=== PATIENT | female | born 1950 | race Caucasian/White ===

== ENCOUNTER 2017-01-10 10:02 | Observation (INO) | payer OTHER ==
[~2017-01-10] VITALS: Ht 162.6 cm; Wt 109.0 kg
[~2017-01-10 10:02] MED LIST: ASPI-110 PO; BACT800T5 PO; CANA300T PO; CIPR-9 PO; FLUO10TA PO; LISI40TA PO; MAGN250T2 PO; METF-382 PO; METO50TA PO; METR-1 PO; MULT1TAB96 PO; NOVOLOGP2 SQ; OMEP20TA PO; PIOG30TA4 PO; POTA99TA PO; PRAV20TA2 PO; PROM25TA5 PO; ZOFR4TAB3 SL
[2017-01-10 10:03] VITALS: BP 212/95; PULSE 66; RESP 20; TEMP 98.2; O2SAT 97
[2017-01-10] MEDS ORDERED: PRAV40TA2 PO (10:33)
[2017-01-10] MEDS ORDERED: NOVO7030P2 SQ (10:33)
[2017-01-10] MEDS ORDERED: OMEGCAP PO (10:33)
[2017-01-10] MEDS ORDERED: FIBE500T PO (10:33)
[2017-01-10] MEDS ORDERED: GLUC1TAB16 PO (10:33)
[2017-01-10] MEDS ORDERED: COQ-100C2 PO (10:33)
[2017-01-10] MEDS ORDERED: ASPIRIN 81 MG CHEW TAB PO ONE (10:45)
[2017-01-10] MEDS ORDERED: SODIUM CHLORIDE 0.9% FLUSH 10 ML FLUSH IVF PRN (10:45)
[2017-01-10] MEDS ORDERED: SODIUM CHLORID 0.9% 500 ML INJ 500 ML IV ONE (10:45)
[2017-01-10 11:10] VITALS: RESP 20; O2SAT 97
--- NOTE | 2017-01-10 11:17 | PD ---
HPI Chief Complaint: Cardiac Complaint Time Seen by Provider: 10:29 Travel History International Travel<30 days: No Contact w/Intl Traveler<30days: No Traveled to known affect area: No History of Present Illness HPI Patient is a 66-year-old female who presents to emergency room with history of hypertension, diabetes with multiple complaints. Patient reports that since yesterday 6 PM, she has been having chest pain. Patient reports that her chest pain is located to her left breast, reports that it radiates to her jaw. Patient reports chest pain as sharp and stabbing in nature, reports that she has associated shortness of breath with her symptoms. Patient reports that chest pain is exacerbated with taking deep breaths. Reports that pain has been continuous since last night. Reports that nothing really makes her pain better. Patient also reports that she has noticed that her legs have been swollen. She has noticed increased swelling in legs which is worse at nighttime for the past week. Patient reports history of DVT in the past, reports that she currently is not on anticoagulation. Patient reports that the last time she was diagnosed with a DVT was about 40 years ago when she had her daughter. Reports that DVT was related [facility] Past Medical History Heart Rhythm Problems: No Cardiac Catheterization: No Cardiovascular Problems: Yes (HTN) High Cholesterol: No Congestive Heart Failure: No Diabetes: Yes (TYPE II, METFORMIN 01/10 0800) Patient Takes Glucophage: Yes Diminished Hearing: Yes (BILATERAL) Gastrointestinal Disorders: Yes GERD: Yes Genitourinary: Yes Hepatitis: Yes (HEP-A) Hypertension: Yes Kidney Stones: Yes Musculoskeletal: No Neurologic: No Reproductive: No Respiratory: Yes (HISTOPLASMOSIS IN 20'S) Myocardial Infarction: No Pancreatitis: Yes Sleep Apnea: Yes ?: Not : 4 Para: 3 Miscarriage: 1 Dilation and Curettage (D&C): Yes Tubal Ligation: Yes Past Surgical History Abdominal Surgery: No Appendectomy: Yes Cardiac Surgery: Yes (CARDIAC CATH) Cholecystectomy: Yes Coronary Artery Bypass Graft: No Ear Surgery: No Endocrine Surgery: Yes (GALL BLADDER) Eye Surgery: No Genitourinary Surgery: No Gynecologic Surgery: Yes (TUBAL LIGATION, D&C ) Oral Surgery: No Pacemaker: No Thoracic Surgery: No Tonsillectomy: Yes Other Surgery: Yes (UPPP) Social History Alcohol Use: No Tobacco Use: No Substance Use: No Allergies-Medications (Allergen,Severity, Reaction): Coded Allergies: Aspartame (Verified Allergy, Severe, ANAPHYLAXIS, 01/10/17) Codeine (Verified Allergy, Severe, HIVES, RASH, 01/10/17) (Verified Allergy, Severe, HIVES, RASH, 01/10/17) Micardis (Verified Allergy, Severe, RASH, SWELLING AND PAIN TO EXTREMITIES , 01/10/17) Robitussin (Verified Allergy, Severe, HIVES, 01/10/17) Tramadol (Verified Allergy, Severe, 01/10/17) Reported Meds & Prescriptions Reported Meds & Active Scripts Active Reported Glucosamine Sulfate 1,000 Mg Tab 1,000 Mg PO DAILY Coq-10 (Coenzyme Q10 (Ubidecarenone)) 100 Mg Cap 100 Mg PO DAILY Zap-3 Fish Oil/Vitamin (Fish Oil-Cholecalciferol) 1,000-1,000 Mg Cap 1 Cap PO DAILY Fiber Therapy (Methylcellulose) 500 Mg Tab 1 Tab PO DAILY PRN Novolin 70-30 Inj (Insulin Human Isoph/Insulin Regular) 1,000 Unit/10 Ml Vial 1 Units SQ Pravastatin 40 Mg Tab 40 Mg PO DAILY Aspirin 81 (Aspirin) 81 Mg Tabdr 81 Mg PO DAILY Multivitamin Women 50+ (Multiple Vitamins W/ Minerals) 1 Tab Tab 1 Tab PO DAILY Magnesium 250 Mg Tab 250 Mg PO DAILY Potassium 99 Mg Tab 1 Tab PO DAILY Omeprazole 20 Mg Tab 20 Mg PO DAILY Pioglitazone (Pioglitazone HCl) 30 Mg Tab 30 Mg PO DAILY Metformin ER (Metformin HCl) 1,000 Mg Jose 1,000 Mg PO BID With evening meal Lisinopril 40 Mg Tab 40 Mg PO DAILY Metoprolol Tartrate 50 Mg Tab 50 Mg PO BID Review of Systems General / Constitutional: No: Fever Eyes: No: Visual changes HENT: No: Headaches Cardiovascular: Positive: Chest Pain or Discomfort Respiratory: Positive: Shortness of Breath, No: Cough Gastrointestinal: No: Abdominal Pain Genitourinary: No: Dysuria Musculoskeletal: Positive: Edema, No: Pain Skin: No Rash Neurologic: No: Weakness Psychiatric: No: Depression Endocrine: No: Polydipsia Hematologic/Lymphatic: No: Easy Bruising Physical Exam Narrative GENERAL: nad, nontoxic SKIN: Focused skin assessment warm/dry. HEAD: Atraumatic. Normocephalic. EYES: Pupils equal and round. No scleral icterus. No injection or drainage. ENT: No nasal bleeding or discharge. Mucous membranes pink and moist. NECK: Trachea midline. No JVD. CARDIOVASCULAR: Regular rate and rhythm. No murmur appreciated. RESPIRATORY: No accessory muscle use. Clear to auscultation. Breath sounds equal bilaterally. GASTROINTESTINAL: Abdomen soft, non-tender, nondistended. Hepatic and splenic margins not palpable. MUSCULOSKELETAL: No obvious deformities. No clubbing. No cyanosis. +1 edema to LE NEUROLOGICAL: Awake and alert. No obvious cranial nerve deficits. Motor grossly within normal limits. Normal speech. PSYCHIATRIC: Appropriate mood and affect; insight and judgment normal. Data Data Last Documented VS Vital Signs Date Time Temp Pulse Resp B/P Pulse Ox O2 Delivery O2 Flow Rate FiO2 01/10/17 12:21 17 01/10/17 11:10 97 Room Air 01/10/17 10:03 98.2 66 212/95 Orders Electrocardiogram (01/10/17 ) B-Type Natriuretic Peptide (01/10/17 10:35) Ckmb (Isoenzyme) Profile (01/10/17 10:35) Complete Blood Count With Diff (01/10/17 10:35) Comprehensive Metabolic Panel (01/10/17 10:35) D-Dimer (01/10/17 10:35) Magnesium (Mg) (01/10/17 10:35) Prothrombin Time / Inr (Pt) (01/10/17 10:35) Act Partial Throm Time (Ptt) (01/10/17 10:35) Troponin I (01/10/17 10:35) Chest, Single Ap (01/10/17 10:35) Ecg Monitoring (01/10/17 10:35) Iv Access Insert/Monitor (01/10/17 10:35) Oximetry (01/10/17 10:35) Aspirin Chew (Aspirin Chew) (01/10/17 10:45) Sodium Chloride 0.9% Flush (Ns Flush) (01/10/17 10:45) Sodium Chlorid 0.9% 500 Ml Inj (Ns 500 M (01/10/17 10:45) Us Leg Venous Doppler Bilat (01/10/17 ) Nitroglycerin Sl (Nitrostat Sl) (01/10/17 11:30) Ct Pulmonary Angiogram (01/10/17 13:09) Iohexol 350 Inj (Omnipaque 350 Inj) (01/10/17 14:24) Admit Order (Ed Use Only) (01/10/17 14:57) Labs Laboratory Tests Test 01/10/17 12:10 White Blood Count 5.8 TH/MM3 Red Blood Count 4.26 MIL/MM3 Hemoglobin 12.3 GM/DL Hematocrit 36.3 % Mean Corpuscular Volume 85.3 FL Mean Corpuscular Hemoglobin 28.8 PG Mean Corpuscular Hemoglobin 33.8 % Concent Red Cell Distribution Width 13.3 % Platelet Count 202 TH/MM3 Mean Platelet Volume 9.2 FL Neutrophils (%) (Auto) 54.3 % Lymphocytes (%) (Auto) 33.6 % Monocytes (%) (Auto) 7.7 % Eosinophils (%) (Auto) 3.7 % Basophils (%) (Auto) 0.7 % Neutrophils # (Auto) 3.1 TH/MM3 Lymphocytes # (Auto) 1.9 TH/MM3 Monocytes # (Auto) 0.4 TH/MM3 Eosinophils # (Auto) 0.2 TH/MM3 Basophils # (Auto) 0.0 TH/MM3 CBC Comment DIFF FINAL Differential Comment Prothrombin Time 10.7 SEC Prothromb Time International 1.0 RATIO Ratio Activated Partial 28.2 SEC Thromboplast Time D-Dimer Quantitative (PE/DVT) 3.79 MG/L FEU Sodium Level 141 MEQ/L Potassium Level 4.5 MEQ/L Chloride Level 107 MEQ/L Carbon Dioxide Level 24.2 MEQ/L Anion Gap 10 MEQ/L Blood Urea Nitrogen 14 MG/DL Creatinine 1.01 MG/DL Estimat Glomerular Filtration 55 ML/MIN Rate Random Glucose 158 MG/DL Calcium Level 9.0 MG/DL Magnesium Level 1.6 MG/DL Total Bilirubin 0.3 MG/DL Aspartate Amino Transf 25 U/L (AST/SGOT) Alanine Aminotransferase 35 U/L (ALT/SGPT) Alkaline Phosphatase 132 U/L Total Creatine Kinase 85 U/L Troponin I LESS THAN 0.02 NG/ML B-Type Natriuretic Peptide 62 PG/ML Total Protein 7.5 GM/DL Albumin 3.7 GM/DL MDM Medical Decision Making Medical Screen Exam Complete: Yes Emergency Medical Condition: Yes Interpretation(s) EKG at 1025: NSR at 60bpm, qt/qtc: 376/377, no acute st or t wave changes Vital Signs Date Time Temp Pulse Resp B/P Pulse Ox O2 Delivery O2 Flow Rate FiO2 01/10/17 10:03 98.2 66 20 212/95 97 Room Air Differential Diagnosis ACS, PE, DVT, pneumothorax, arrhythmia, electrolyte abnormality Narrative Course Patient is a 66-year-old female who presents to emergency room with complaints of not feeling well. Patient reports that she has been having chest pain since 6 PM last night. Reports that pain is left sided and radiates to her neck. Reports history of htn and DM and hyperlipidemia. No history of ACS, MT. EKG on initial presentation showed normal sinus rhythm with no acute ST or T-wave changes. Plan to obtain x-ray chest, lab work including cardiac enzymes. We'll give so we'll nitroglycerin receive a helps for chest pain. Patient also complaining of lower extremity swelling. Patient does have history of DVT in the past, ultrasound of legs ordered. Patient with relief of chest pain after 1 sublingual nitroglycerin. Patient d-dimer elevated, patient agreeable to CTA to rule out PE Laboratory Tests Test 01/10/17 12:10 White Blood Count 5.8 TH/MM3 (4.0-11.0) Red Blood Count 4.26 MIL/MM3 (4.00-5.30) Hemoglobin 12.3 GM/DL (11.6-15.3) Hematocrit 36.3 % (35.0-46.0) Mean Corpuscular Volume 85.3 FL (80.0-100.0) Mean Corpuscular Hemoglobin 28.8 PG (27.0-34.0) Mean Corpuscular Hemoglobin 33.8 % Concent (32.0-36.0) Red Cell Distribution Width 13.3 % (11.6-17.2) Platelet Count 202 TH/MM3 (150-450) Mean Platelet Volume 9.2 FL (7.0-11.0) Neutrophils (%) (Auto) 54.3 % (16.0-70.0) Lymphocytes (%) (Auto) 33.6 % (9.0-44.0) Monocytes (%) (Auto) 7.7 % (0.0-8.0) Eosinophils (%) (Auto) 3.7 % (0.0-4.0) Basophils (%) (Auto) 0.7 % (0.0-2.0) Neutrophils # (Auto) 3.1 TH/MM3 (1.8-7.7) Lymphocytes # (Auto) 1.9 TH/MM3 (1.0-4.8) Monocytes # (Auto) 0.4 TH/MM3 (0-0.9) Eosinophils # (Auto) 0.2 TH/MM3 (0-0.4) Basophils # (Auto) 0.0 TH/MM3 (0-0.2) CBC Comment DIFF FINAL Differential Comment Prothrombin Time 10.7 SEC (9.8-11.6) Prothromb Time International 1.0 RATIO Ratio Activated Partial 28.2 SEC Thromboplast Time (24.3-30.1) D-Dimer Quantitative (PE/DVT) 3.79 MG/L FEU (0.00-0.50) Sodium Level 141 MEQ/L (136-145) Potassium Level 4.5 MEQ/L (3.5-5.1) Chloride Level 107 MEQ/L (98-107) Carbon Dioxide Level 24.2 MEQ/L (21.0-32.0) Anion Gap 10 MEQ/L (5-15) Blood Urea Nitrogen 14 MG/DL (7-18) Creatinine 1.01 MG/DL (0.50-1.00) Estimat Glomerular Filtration 55 ML/MIN (>89) Rate Random Glucose 158 MG/DL (74-106) Calcium Level 9.0 MG/DL (8.5-10.1) Magnesium Level 1.6 MG/DL (1.5-2.5) Aspartate Amino Transf 25 U/L (15-37) (AST/SGOT) Albumin 3.7 GM/DL (3.4-5.0) Last Impressions Chest X-Ray 01/10/17 1035 Signed Impressions: Service Date/Time: Tuesday, January 10, 2017 11:02 - CONCLUSION: No acute disease. Carmelo Winters MD Lower Extremity Ultrasound 01/10/17 0000 Signed Impressions: Service Date/Time: Tuesday, January 10, 2017 11:05 - CONCLUSION: No DVT. Carmelo Winters MD Last Impressions CT Angiography 01/10/17 1309 Signed Impressions: Service Date/Time: Tuesday, January 10, 2017 14:20 - CONCLUSION: No pulmonary embolus. Carmelo Winters MD Chest X-Ray 01/10/17 1035 Signed Impressions: Service Date/Time: Tuesday, January 10, 2017 11:02 - CONCLUSION: No acute disease. Carmelo Winters MD Lower Extremity Ultrasound 01/10/17 0000 Signed Impressions: Service Date/Time: Tuesday, January 10, 2017 11:05 - CONCLUSION: No DVT. Carmelo Winters MD Repeat ekg at 1454: NSR at 62bpm, qt/qtc: 383/389, no st or t wave changes I reviewed all labs and all studies with patient in detail, plan to observation for chest pain, patient agreeable to primary care Diagnosis Primary Impression: Chest pain Qualified Code: R07.9 - Chest pain, unspecified type Admitting Information Admitting Physician Requests: Observation Katharine Ying DO Jan 10, 2017 11:17
[2017-01-10] MEDS: NITROGLYCERIN 0.4 MG SL 25 TABS/BTL SL SCH ×3 (11:35→12:16)
--- NOTE | 2017-01-10 11:40 | RADRPT ---
EXAM DATE/TIME: 01/10/2017 11:02 [facility] COMPARISON: CHEST SINGLE AP, December 30, 2013, 21:44. INDICATIONS : Left sided chest pain MEDICAL HISTORY : Hypertension. Gastroesophageal reflux disease. Diabetes. SURGICAL HISTORY : Appendectomy. Cholecystectomy.Tubal ligation. ENCOUNTER: Initial ACUITY: 1 day PAIN SCORE: 7/10 LOCATION: Left chest FINDINGS: A single view of the chest demonstrates the lungs to be symmetrically aerated without evidence of mas s, infiltrate or effusion. The cardiomediastinal contours are unremarkable. Osseous structures are intact. CONCLUSION: No acute disease. Carmelo Winters MD on January 10, 2017 at 11:38 Board Certified Radiologist. This report was verified electronically.
--- NOTE | 2017-01-10 12:09 | RADRPT ---
EXAM DATE/TIME: 01/10/2017 11:05 [facility] COMPARISON: No previous studies available for comparison. INDICATIONS : Bilateral leg swelling. MEDICAL HISTORY : Gastroesophageal reflux disease. Hypertension. Hyperlipidemia. Kidney stones. History of MRSA. SURGICAL HISTORY : Tonsillectomy.Cholecystectomy. Tubal ligation.Adenoidectomy. Two knee surgeries. ENCOUNTER: Initial ACUITY: 2 day PAIN SCORE: 5/10 LOCATION: Bilateral legs. TECHNIQUE: Venous ultrasound of the left and right leg was performed from the inguinal ligament to the proximal calf. Real-time, color Doppler and spectral tracing, compression and augmentation techniques were us ed. FINDINGS: RIGHT LEG: There is normal compressibility of the deep venous system from the inguinal region to the proximal ca lf. No echogenic clot is seen in the lumen of the common femoral, femoral, popliteal, and posterior tibial veins. There is a normal response of the venous system to proximal and distal augmentation an d respiration. LEFT LEG: There is normal compressibility of the deep venous system from the inguinal region to the proximal ca lf. No echogenic clot is seen in the lumen of the common femoral, femoral, popliteal, and posterior tibial veins. There is a normal response of the venous system to proximal and distal augmentation an d respiration. CONCLUSION: No DVT. Carmelo Winters MD on January 10, 2017 at 12:07 Board Certified Radiologist. This report was verified electronically.
[2017-01-10 12:50] LABS: AUTOMATED NEUTROPHIL # 3.1 TH/MM3 (1.8-7.7); BASOPHIL % 0.7 % (0.0-2.0); EOSINOPHIL # 0.2 TH/MM3 (0-0.4); EOSINOPHIL % 3.7 % (0.0-4.0); HEMATOCRIT 36.3 % (35.0-46.0); HEMO FLAGS DIFF FINAL; LYMPH % 33.6 % (9.0-44.0); LYMPHOCYTE # 1.9 TH/MM3 (1.0-4.8); MEAN CELL VOLUME 85.3 FL (80.0-100.0); MEAN CORPUSCULAR HEMOGLOBIN 28.8 PG (27.0-34.0); MEAN CORPUSCULAR HGB CONC 33.8 % (32.0-36.0); MONO % 7.7 % (0.0-8.0); NEUT % 54.3 % (16.0-70.0); PLATELET COUNT 202 TH/MM3 (150-450); RED BLOOD COUNT 4.26 MIL/MM3 (4.00-5.30); RED CELL DISTRIBUTION WIDTH 13.3 % (11.6-17.2); WHITE BLOOD COUNT 5.8 TH/MM3 (4.0-11.0)
[2017-01-10 13:00] LABS: APTT (PATIENT) 28.2 SEC (24.3-30.1); PROTHROMBIN TIME - PATIENT 10.7 SEC (9.8-11.6)
[2017-01-10 13:07] LABS: ANION GAP 10 MEQ/L (5-15); AST (GOT) 25 U/L (15-37); BICARBONATE 24.2 MEQ/L (21.0-32.0); BLOOD UREA NITROGEN 14 MG/DL (7-18); CHLORIDE 107 MEQ/L (98-107); GLOMERULAR FILTRATION RATE 55 ML/MIN (>89); MAGNESIUM 1.6 MG/DL (1.5-2.5); POTASSIUM 4.5 MEQ/L (3.5-5.1); SODIUM (NA) 141 MEQ/L (136-145)
[2017-01-10 13:12] LABS: ALKALINE PHOSPHATASE 132 U/L (45-117); ALT (GPT) 35 U/L (10-53); TOTAL BILIRUBIN ADULT 0.3 MG/DL (0.2-1.0)
[2017-01-10 13:20] LABS: CREATINE KINASE 85 U/L (26-192)
[2017-01-10] MEDS ORDERED: METFORMIN HOLD POST IV CONTRAST SCH (14:23)
[2017-01-10] MEDS ORDERED: IOHEXOL 350 MG/ML 10 ML VIAL (for RAD DIAG) IV ONE (14:24)
--- NOTE | 2017-01-10 14:50 | RADRPT ---
EXAM DATE/TIME: 01/10/2017 14:20 [facility] COMPARISON: No previous studies available for comparison. INDICATIONS : Substernal chest pain and general weakness since last night. IV CONTRAST: 74 cc Omnipaque 350 (iohexol) IV RADIATION DOSE: 23.18 CTDIvol (mGy) MEDICAL HISTORY : Hepatitis A. diabetes, hypertension SURGICAL HISTORY : Tubal ligation. Cholecystectomy. ENCOUNTER: Initial ACUITY: 1 day PAIN SCALE: 7/10 LOCATION: substernal chest TECHNIQUE: Volumetric scanning of the chest was performed using a pulmonary embolism protocol MIP images were re constructed. Using automated exposure control and adjustment of the mA and/or kV according to patien t size, radiation dose was kept as low as reasonably achievable to obtain optimal diagnostic quality images. FINDINGS: PULMONARY ARTERIES: No filling defects are seen in the pulmonary arteries through the segmental level. LUNGS: There is no consolidation or pneumothorax . No concerning pulmonary nodule is visualized. PLEURAE: There is no pleural thickening or pleural effusion. MEDIASTINUM: There is good visualization of the great vessels of the middle mediastinum. No evidence of mediastin al or hilar adenopathy/mass. MUSCULOSKELETAL: Within normal limits for patient age. MISCELLANEOUS: The visualized upper abdominal organs demonstrate no acute abnormality. CONCLUSION: No pulmonary embolus. Carmelo Winters MD on January 10, 2017 at 14:47 Board Certified Radiologist. This report was verified electronically.
--- NOTE | 2017-01-10 15:04 | EKG ---
Date Performed: 01/10/2017 Time Performed: 10:25:10 PTAGE: 66 years EKG: Sinus rhythm WITH FIRST DEGREE AV BLOCK LOW QRS VOLTAGE IN PRECORDIAL LEADS ABNORMAL ECG PREVIOUS TRACING : 12/31/2013 04.53 Since previous tracing, no significant change noted DOCTOR: Missael Rizzo Interpretating Date/Time 01/10/2017 15:03:07
[2017-01-10] MEDS ORDERED: ACETAMINOPHEN 500 MG CPLT PO PRN (15:30)
[2017-01-10] MEDS ORDERED: NITROGLYCERIN 0.4 MG SL 25 TABS/BTL SL PRN (15:30)
[2017-01-10] MEDS ORDERED: ONDANSETRON HCL 4 MG/2 ML VIAL IV PRN (15:30)
[2017-01-10 15:52] VITALS: BP 136/62; PULSE 62; RESP 17; O2SAT 96
--- NOTE | 2017-01-10 16:36 | HHI.HP ---
HPI Primary Care Physician PCP-[place] Chief Complaint Chest pain History of Present Illness 66-year-old female with known diabetes, hypertension, and hyperlipidemia presents to emergency room for further onset of chest discomfort. Onset Wednesday 6 PM. Location substernal area. Characterized as a constant sharp pain with intermittent stabbing pains. Associated symptoms included nausea. No diaphoresis or vomiting. Laying flat made the pain worse. She slept intermittently last night due to pain. Throughout the evening she noticed radiation to her left jaw left arm and left shoulder area. Deep breathing makes pain worse. As well as twisting too fast or moving left arm to quit. No recent illness or travel. No known trauma to area. Nitroglycerin provided in the ER improved pain for approximately 3 hours. Pain has now returned. Also complains of 4 days dependent leg edema. No change in diet or activity. Checks her blood pressure daily and noticed over the last 4 days her blood pressure has been slightly elevated with today's blood pressure 177/80. This is uncommon for her and she is quite concerned. Remote history of DVT 40 years ago while . Review of Systems General: No fatigue,weakness, fever, chills, or recent illness. Has been in her general state of health with no recent illnesses. HEENT: No GUERRA, no vision changes, no nasal congestion or drainage CV: As stated above. No chest pressure, palpitations, intermittent leg pain, or dizziness. RESP: No SOB, cough, wheeze, or recent URI. Past history of sleep apnea has resolved with surgery. GI: No nausea, vomiting, bowel changes, diarrhea, constipation, pain, distention , melena, blood in the stool. No change in appetite, no unintentional weight gain or weight loss : No dysuria, urgency, frequency EXT: Dependent bilateral lower leg edema x4 days, states she normally does not have dependent edema. No paraesthesias MS: Moving too fast or certain left arm movement makes pain worse. No change in ROM. NEURO: No change in memory, dizziness, difficulty with balance, LOC, motor/ sensory deficits PSYCH: No anxiety or depression. SKIN: No rashes, no concerning lesions Past Family Social History Allergies: Coded Allergies: Aspartame (Verified Allergy, Severe, ANAPHYLAXIS, 01/10/17) Codeine (Verified Allergy, Severe, HIVES, RASH, 01/10/17) (Verified Allergy, Severe, HIVES, RASH, 01/10/17) Micardis (Verified Allergy, Severe, RASH, SWELLING AND PAIN TO EXTREMITIES , 01/10/17) Robitussin (Verified Allergy, Severe, HIVES, 01/10/17) Tramadol (Verified Allergy, Severe, 01/10/17) Past Medical History Hypertension, diabetes, hyperlipidemia, chronic venous insufficiency, GERD, nephrolithiasis, pancreatitis, histoplasmosislate 20s, MRSA right [id number] Past Surgical History Tubal ligation, cholecystectomy Reported Medications Reported Meds & Active Scripts Active Reported Glucosamine Sulfate 1,000 Mg Tab 1,000 Mg PO DAILY Coq-10 (Coenzyme Q10 (Ubidecarenone)) 100 Mg Cap 100 Mg PO DAILY Globe-3 Fish Oil/Vitamin (Fish Oil-Cholecalciferol) 1,000-1,000 Mg Cap 1 Cap PO DAILY Fiber Therapy (Methylcellulose) 500 Mg Tab 1 Tab PO DAILY PRN Novolin 70-30 Inj (Insulin Human Isoph/Insulin Regular) 1,000 Unit/10 Ml Vial 1 Units SQ Pravastatin 40 Mg Tab 40 Mg PO DAILY Aspirin 81 (Aspirin) 81 Mg Tabdr 81 Mg PO DAILY Multivitamin Women 50+ (Multiple Vitamins W/ Minerals) 1 Tab Tab 1 Tab PO DAILY Magnesium 250 Mg Tab 250 Mg PO DAILY Potassium 99 Mg Tab 1 Tab PO DAILY Omeprazole 20 Mg Tab 20 Mg PO DAILY Pioglitazone (Pioglitazone HCl) 30 Mg Tab 30 Mg PO DAILY Metformin ER (Metformin HCl) 1,000 Mg Jose 1,000 Mg PO BID With evening meal Lisinopril 40 Mg Tab 40 Mg PO DAILY Metoprolol Tartrate 50 Mg Tab 50 Mg PO BID Active Ordered Medications Current Medications Medications (Trade) Dose Ordered Sig/Addis Route Start Time Stop Time Status Last Admin (Tylenol) 500 mg Q4H PRN PO 01/10/17 15:30 (Zofran Inj) 4 mg Q6H PRN IV 01/10/17 15:30 (Nitrostat Sl) 0.4 mg Q5M PRN SL 01/10/17 15:30 (Aspirin) 325 mg DAILY PO 01/11/17 09:00 Family History Brother at age 63 [place], another brother heart attack at age 48, still living , son age 43 [place]. Social History Known diabetes, hyperlipidemia, and hypertension. Smoked for approximately 4 years in her early 20s. Denies any alcohol or illegal drug use. Custody of her 3 grandchildren. She is active. Past cardiac testing 12/31/13-Tonja scan negative for stress induced ischemia 02/01/08 ZAIN- PFO with small [id number] shunt is present EF 55-60% Physical Exam Vital Signs Vital Signs Date Time Temp Pulse Resp B/P Pulse Ox O2 Delivery O2 Flow Rate FiO2 01/10/17 15:52 62 17 136/62 96 Room Air 01/10/17 12:21 17 01/10/17 11:10 20 97 Room Air 01/10/17 10:03 98.2 66 20 212/95 97 Room Air Physical Exam GENERAL: Alert WN, WD, NAD, pleasant, obese, female HEAD: NC, AT EYES: Sclera clear, conjunctiva without injection, pupils equal and round CV: RRR, without murmur, rub, gallop, no JVD, S1-S2 no S3-S4. RESP: Clear lungs throughout bilateral, no crackles, wheeze, rhonchi, symmetrical chest rise, nonlabored, able to speak in full sentences ABD: Soft, NT, ND, obese, no masses, positive bowel tones EXT: Pulses +24, trace bilateral lower leg dependent edema MS: Normal tone 4 extremities, nontender, no obvious deformities, full range of motion NEURO: CN II through CN XII grossly intact, motor strength 5/5, gait WNL PSYCH: A+O 3, pleasant affect, appropriate speech, appropriate mood and affect , insight and judgment SKIN: Normal turgor, normal texture, no lesions, no rashes, brisk cap refill, even hair distribution Laboratory Laboratory Tests Test 01/10/17 12:10 White Blood Count 5.8 Red Blood Count 4.26 Hemoglobin 12.3 Hematocrit 36.3 Mean Corpuscular Volume 85.3 Mean Corpuscular Hemoglobin 28.8 Mean Corpuscular Hemoglobin 33.8 Concent Red Cell Distribution Width 13.3 Platelet Count 202 Mean Platelet Volume 9.2 Neutrophils (%) (Auto) 54.3 Lymphocytes (%) (Auto) 33.6 Monocytes (%) (Auto) 7.7 Eosinophils (%) (Auto) 3.7 Basophils (%) (Auto) 0.7 Neutrophils # (Auto) 3.1 Lymphocytes # (Auto) 1.9 Monocytes # (Auto) 0.4 Eosinophils # (Auto) 0.2 Basophils # (Auto) 0.0 CBC Comment DIFF FINAL Differential Comment Prothrombin Time 10.7 Prothromb Time International 1.0 Ratio Activated Partial 28.2 Thromboplast Time D-Dimer Quantitative (PE/DVT) 3.79 Sodium Level 141 Potassium Level 4.5 Chloride Level 107 Carbon Dioxide Level 24.2 Anion Gap 10 Blood Urea Nitrogen 14 Creatinine 1.01 Estimat Glomerular Filtration 55 Rate Random Glucose 158 Calcium Level 9.0 Magnesium Level 1.6 Total Bilirubin 0.3 Aspartate Amino Transf 25 (AST/SGOT) Alanine Aminotransferase 35 (ALT/SGPT) Alkaline Phosphatase 132 Total Creatine Kinase 85 Troponin I LESS THAN 0.02 B-Type Natriuretic Peptide 62 Total Protein 7.5 Albumin 3.7 Result Diagram: 01/10/17 1210 01/10/[address] Angiography 01/10/17 1309 Signed Impressions: Service Date/Time: Tuesday, January 10, 2017 14:20 - CONCLUSION: No pulmonary embolus. Carmelo Winters MD Chest X-Ray 01/10/17 1035 Signed Impressions: Service Date/Time: Tuesday, January 10, 2017 11:02 - CONCLUSION: No acute disease. Carmelo Winters MD Lower Extremity Ultrasound 01/10/17 0000 Signed Impressions: Service Date/Time: Tuesday, January 10, 2017 11:05 - CONCLUSION: No DVT. Carmelo Winters MD Course EKGs First EKG normal sinus rhythm with first-degree AV block, left axis deviation but no ST or T-segment changes Second EKG shows normal sinus rhythm, left axis deviation with nonspecific ST changes Assessment and Plan Assessment and Plan #1 Chest painadmitted to chest pain center. Will rule out with 3 sets of EKGs , cardiac enzymes and monitor her overnight. Will be seen and evaluated by Dr. Bala Nieto in a.m. Discussed the likelihood patient may require chemical stress test in a.m. after evaluation by blending tank helper due to her multiple cardiovascular risks. Patient is agreeable to this plan of care. #2 Musculoskeletal painToradol 30 mg IV every 6 hours times a total of 3 doses. This is been discussed with RN. Discussed with patient most likely chest discomfort musculoskeletal in nature. #3 Diabeteshold oral anti-glycemics, SSI low dose insulin coverage #4 Hypertensioncontinue with lisinopril and metoprolol #5 Hyperlipidemiacontinue pravastatin #6 GERDcontinue omeprazole Hailey Cross Jan 10, 2017 16:36
[2017-01-10] MEDS ORDERED: GLUCAGON 1 MG/ML VIAL OTHER PRN (17:00)
[2017-01-10] MEDS ORDERED: DEXTROSE 50% IN WATER 50 ML VIAL(D50) IV PUSH PRN (17:00)
[2017-01-10 17:31] LABS: CREATINE KINASE 61 U/L (26-192)
[2017-01-10] MEDS ORDERED: PILL SPLITTER OTHER PRN (18:15)
[2017-01-10] MEDS: KETOROLAC TROMETHAMINE 30 MG/ML (IVP) VIAL IV PUSH SCH (19:11)
[2017-01-10 19:56] LABS: CREATINE KINASE 63 U/L (26-192)
[2017-01-10 20:09] VITALS: BP 134/61; PULSE 68; RESP 18; TEMP 98.4; O2SAT 95
[2017-01-10] MEDS: METOPROLOL TARTRATE 50 MG TAB PO SCH (20:47)
[2017-01-10] MEDS: SODIUM CHLORIDE 0.9% FLUSH 10 ML FLUSH IV FLUSH SCH (20:47)
[2017-01-10] MEDS: INSULIN ASPART SUPPLEMENTAL SCALE SQ SCH (20:47)
[2017-01-11 00:30] VITALS: BP 138/63; PULSE 62; RESP 20; TEMP 98; O2SAT 95
[2017-01-11] MEDS: KETOROLAC TROMETHAMINE 30 MG/ML (IVP) VIAL IV PUSH SCH ×2 (00:35→05:56)
[2017-01-11 04:42] VITALS: BP 152/68; PULSE 63; RESP 20; TEMP 98; O2SAT 96
[2017-01-11] MEDS: INSULIN ASPART SUPPLEMENTAL SCALE SQ SCH (06:42)
[2017-01-11 06:46] VITALS: PULSE 61
[2017-01-11 07:28] VITALS: O2SAT 97
[2017-01-11 07:47] VITALS: BP 158/75; PULSE 58; RESP 18; TEMP 98.5; O2SAT 96
[2017-01-11] MEDS: SODIUM CHLORIDE 0.9% FLUSH 10 ML FLUSH IV FLUSH SCH (08:18)
[2017-01-11] MEDS: METOPROLOL TARTRATE 50 MG TAB PO SCH (08:23)
[2017-01-11] MEDS ORDERED: PANTOPRAZOLE SOD 20 MG DELAYED RELEASE TAB PO SCH (09:00)
[2017-01-11] MEDS ORDERED: MULTIVITAMINS/MINERALS THERAPEUTIC TAB PO SCH (09:00)
[2017-01-11] MEDS ORDERED: PRAVASTATIN SOD 40 MG TAB PO SCH (09:00)
[2017-01-11] MEDS ORDERED: NON-FORMULARY DRUG (Potassium 1 TAB) PO SCH (09:00)
[2017-01-11] MEDS ORDERED: NON-FORMULARY DRUG (Fish Oil-Cholecalciferol (Omega-3 Fish Oil/Vitamin) 1 CAP) PO SCH (09:00)
[2017-01-11] MEDS ORDERED: MAGNESIUM OXIDE 400 MG TAB PO SCH (09:00)
[2017-01-11] MEDS ORDERED: LISINOPRIL 20 MG TAB PO SCH (09:00)
[2017-01-11] MEDS ORDERED: ASPIRIN 325 MG TAB PO SCH (09:00)
[2017-01-11] MEDS ORDERED: REGADENOSON INJ 0.4 MG/5 ML SYR ONE (09:55)
--- NOTE | 2017-01-11 11:22 | RADRPT ---
EXAM DATE/TIME: 01/11/2017 08:58 [facility] COMPARISON: MYOCARDIAL PERF PHARM SPECT, GATED W/EF, December 31, 2013, 10:57. INDICATIONS : Left chest pain radiating to the jaw with dyspnea and swollen legs for 2 days. Angina. DOSE: 35.0 mCi Tc99m Myoview at stress. 11.0 mCi Tc99m Myoview at rest. 0.4 mg Lexiscan STRESS SYMPTOMS: Chest pain, headache, and dyspnea. EJECTION FRACTION: 67% MEDICAL HISTORY : Hypercholesterolemia. Gastroesophageal reflux disease. Diabetes mellitus type 2. Hypertension. SURGICAL HISTORY : Tubal ligation. Tonsillectomy. Cholecystectomy. Appendectomy. ENCOUNTER: Initial ACUITY: 2 days PAIN SCALE: 8/10 LOCATION: Left chest TECHNIQUE: The patient underwent pharmacologic stress with infusion of prescribed dose. Continuous ECG tracing was monitored during stress. Gated SPECT imaging was performed after stress and conventional SPECT i maging was performed at rest. The examination was performed on a SPECT/CT scanner, both attenuation and non-corrected datasets were reviewed. FINDINGS: DISTRIBUTION: The maximum perfused segment at stress is in the lateral wall. PERFUSION STUDY: The pattern of perfusion at stress is within normal limits. GATED STUDY: There is intact wall motion and thickening without hypokinetic or dyskinetic segments. CONCLUSION: Unremarkable myocardial perfusion scan. RISK CATEGORY: Low (<1% Annual Mortality Rate) Bala Hernandez MD on January 11, 2017 at 11:19 Board Certified Radiologist. This report was verified electronically.
--- NOTE | 2017-01-11 11:30 | HHI.DCPOC ---
Discharge Care Plan Diagnosis: (1) Chest pain (2) DM (diabetes mellitus) (3) Hypertension (4) Hyperlipidemia Goals to Promote Your Health * To prevent worsening of your condition and complications * To maintain your health at the optimal level Directions to Meet Your Goals Take your medications as prescribed Follow your dietary instruction Follow activity as directed Keep your appointments as scheduled Take your immunizations and boosters as scheduled If your symptoms worsen call your PCP, if no PCP go to Urgent Care Center or Emergency Room Smoking is Dangerous to Your Health. Avoid second hand smoke Call the 24-hour hour crisis hotline for domestic abuse at [facility] [place] Jan 11, 2017 11:30
[2017-01-11 12:00] VITALS: BP 182/80; PULSE 65; RESP 18; TEMP 98.1; O2SAT 96
--- NOTE | 2017-01-11 15:04 | EKG ---
Date Performed: 01/10/2017 Time Performed: 18:30:15 PTAGE: 66 years EKG: Sinus rhythm WITH FIRST DEGREE AV BLOCK MODERATE VOLTAGE CRITERIA FOR LVH, CONSIDER NORMAL VARIANT ABNORMAL ECG PREVIOUS TRACING : 01/10/2017 14.54 Since previous tracing, no significant change noted DOCTOR: Bala Nieto Interpretating Date/Time 01/11/2017 15:01:43
--- NOTE | 2017-01-11 15:04 | EKG ---
Date Performed: 01/10/2017 Time Performed: 14:54:27 PTAGE: 66 years EKG: Sinus rhythm MODERATE VOLTAGE CRITERIA FOR LVH, CONSIDER NORMAL VARIANT BORDERLINE ECG INTERPRETATION BASED ON A DEFAULT AGE OF 40 YEARS PREVIOUS TRACING : 01/10/2017 10.25 Since previous tracing, no significant change noted DOCTOR: Bala Nieto Interpretating Date/Time 01/11/2017 15:01:32
--- NOTE | 2017-01-11 15:05 | TR ---
Date Performed: 01/11/2017 Time Performed: 10:01:09 DOCTOR: Bala Nieto DRUG LIST: ZOFRan METOPROLOL ASA NITRO [id number] CLINICAL HISTORY: HTN DIABETES CARDIAC CATH EX SMOKER REASON FOR TEST: REASON FOR ENDING: OBSERVATION: CONCLUSION: Lexiscan stress test was performed under standard four minute protocol. Radionuclid e was injected one minute prior to ending the test. No electrocardiographic abormalities were present to suggest ischemia. Nuclear imaging and interpretation are pending. COMMENTS:
== END 2017-01-11 13:53 | disposition home or self-care (01) ==
LOC: NEPC 10:02 → NEDA 14:58 → NEPHCDU 16:54
DX: R07.89 Other chest pain (principal); I44.0 Atrioventricular block, first degree; I10 Essential (primary) hypertension; E11.9 Type 2 diabetes mellitus without complications; R06.02 Shortness of breath; R60.9 Edema, unspecified; K21.9 Gastro-esophageal reflux disease without esophagitis; R60.0 Localized edema; I87.2 Venous insufficiency (chronic) (peripheral); R94.31 Abnormal electrocardiogram [ECG] [EKG]; M79.1 Myalgia; Z79.84 Long term (current) use of oral hypoglycemic drugs; Z86.718 Personal history of other venous thrombosis and embolism
CPT/HCPCS: 71010; 71275; 78452; 80053; 82550; 82948; 83735; 83880; 84484; 85025; 85379; 85610; 85730; 93005; 93017; 93970; 96360; 96361; 99285; A9502; G0378; J1815; J1885; J2785; J7040; Q9967

== ENCOUNTER 2018-01-03 19:03 | Emergency (ER) | payer OTHER ==
[~2018-01-03 19:03] MED LIST changes: -ASPI-110 PO; +ASPI1TAB57 PO; -BACT800T5 PO; -CANA300T PO; -CIPR-9 PO; +COQ-100C2 PO; +FIBE500T PO; -FLUO10TA PO; +GLUC1TAB16 PO; -METR-1 PO; +NOVO7030P2 SQ; -NOVOLOGP2 SQ; +OMEGCAP PO; -OMEP20TA PO; +OMEP20TA93 PO; -PRAV20TA2 PO; +PRAV40TA2 PO; -PROM25TA5 PO; -ZOFR4TAB3 SL
[2018-01-03] MEDS ORDERED: IOHEXOL 350 MG/ML 10 ML VIAL (for RAD DIAG) IVCONTRAST ONE (19:04)
[2018-01-03 19:06] VITALS: BP 231/98; PULSE 96; RESP 20; TEMP 98.2; O2SAT 97
[2018-01-03 19:58] LABS: AUTOMATED NEUTROPHIL # 3.3 TH/MM3 (1.8-7.7); BASOPHIL % 0.8 % (0.0-2.0); EOSINOPHIL # 0.2 TH/MM3 (0-0.4); EOSINOPHIL % 3.5 % (0.0-4.0); HEMATOCRIT 38.5 % (35.0-46.0); HEMOGLOBIN 12.9 GM/DL (11.6-15.3); LYMPH % 35.8 % (9.0-44.0); LYMPHOCYTE # 2.3 TH/MM3 (1.0-4.8); MEAN CELL VOLUME 84.7 FL (80.0-100.0); MEAN CORPUSCULAR HEMOGLOBIN 28.4 PG (27.0-34.0); MEAN CORPUSCULAR HGB CONC 33.5 % (32.0-36.0); MEAN PLATELET VOLUME 8.5 FL (7.0-11.0); MONO % 9.8 % (0.0-8.0); MONOCYTE # 0.6 TH/MM3 (0-0.9); NEUT % 50.1 % (16.0-70.0); PLATELET COUNT 223 TH/MM3 (150-450); RED BLOOD COUNT 4.54 MIL/MM3 (4.00-5.30); RED CELL DISTRIBUTION WIDTH 13.7 % (11.6-17.2); WHITE BLOOD COUNT 6.5 TH/MM3 (4.0-11.0)
[2018-01-03 20:09] LABS: BILIRUBIN, URINE NEG (NEG); BLOOD, URINE NEG (NEG); GLUCOSE,URINE NEG (NEG); KETONE, URINE NEG (NEG); NITRITE,URINE NEG (NEG); SQUAMOUS EPITHELIAL CELL URINE 3 /hpf (0-5); TRANSITIONAL EPI CELLS, URINE <1 /hpf; URINE COLOR YELLOW (YELLW/STRAW); URINE LEUKOCYTE ESTERASE LARGE (NEG)
[2018-01-03 20:15] LABS: ALBUMIN 3.8 GM/DL (3.4-5.0); AST (GOT) 22 U/L (15-37); BICARBONATE 23.1 MEQ/L (21.0-32.0); BLOOD UREA NITROGEN 19 MG/DL (7-18); CALCIUM 8.8 MG/DL (8.5-10.1); CHLORIDE 108 MEQ/L (98-107); GLOMERULAR FILTRATION RATE 55 ML/MIN (>89); GLUCOSE,RANDOM 161 MG/DL (74-106); SODIUM (NA) 139 MEQ/L (136-145)
[2018-01-03 20:16] LABS: ALT (GPT) 33 U/L (10-53)
[2018-01-03 20:19] LABS: ALKALINE PHOSPHATASE 133 U/L (45-117); TOTAL BILIRUBIN ADULT 0.4 MG/DL (0.2-1.0)
[2018-01-03] MEDS ORDERED: SODIUM CHLOR 0.9% 1000 ML INJ 1,000 ML IV SCH (21:03)
[2018-01-03] MEDS ORDERED: ONDANSETRON HCL 4 MG/2 ML VIAL IVP ONE (21:15)
[2018-01-03] MEDS ORDERED: MORPHINE SULFATE 4 MG/ML INJ IV PUSH ONE (21:15)
--- NOTE | 2018-01-03 22:27 | PD ---
HPI Chief Complaint: Abdominal Pain Time Seen by Provider: 20:56 Travel History International Travel<30 days: No Contact w/Intl Traveler<30days: No Traveled to known affect area: No History of Present Illness HPI 67-year-old female that presents to the ED for evaluation of abdominal pain. Per patient she has been having left lower quadrant abdominal pain with problems urinating. Per patient her urine has been foul odor. She states that she has a history of diverticulitis and feels similar to her diverticulitis but she states that she has been having bowel movements and last time she did not had any bowel movements. She has any nausea or vomiting. Pain is mostly to the left side but she is also having pain on her right lower side. She denies any history of kidney stones. She has any fevers chills or sweats. No chest pain or shortness of breath. No headache. No blurry vision or double vision. No trauma. Symptoms started since last night. Has not taken anything for this. Has not seen anybody for this. Per patient the pain is 6 out of 10 on the left lower quadrant. She does have multiple allergies to different medications. PFSH Past Medical History Heart Rhythm Problems: No Cancer: No Cardiac Catheterization: Yes Cardiovascular Problems: Yes High Cholesterol: Yes Chemotherapy: No Chest Pain: Yes Congestive Heart Failure: No COPD: No Diabetes: Yes Patient Takes Glucophage: No Diminished Hearing: Yes (BILATERAL) Diverticulitis: Yes Endocrine: Yes Gastrointestinal Disorders: Yes GERD: Yes Genitourinary: No Hepatitis: Yes (HEP-A) Hypertension: Yes Kidney Stones: Yes Musculoskeletal: No Neurologic: No Psychiatric: No Reproductive: No Respiratory: No Integumentary: Yes (MRSA) Immunizations Current: Yes Myocardial Infarction: No Pancreatitis: Yes Radiation Therapy: No Sleep Apnea: No Thyroid Disease: No : 4 Para: 3 Miscarriage: 1 Dilation and Curettage (D&C): Yes Tubal Ligation: Yes Past Surgical History Abdominal Surgery: No Appendectomy: Yes Cardiac Surgery: Yes (CARDIAC CATH) Cholecystectomy: Yes Coronary Artery Bypass Graft: No Ear Surgery: No Endocrine Surgery: Yes (GALL BLADDER) Eye Surgery: No Genitourinary Surgery: No Gynecologic Surgery: Yes (TUBAL LIGATION, D&C ) Oral Surgery: No Pacemaker: No Thoracic Surgery: No Tonsillectomy: Yes Other Surgery: Yes (UPPP) Family History Family Myocardial Infarction: Yes Social History Alcohol Use: No Tobacco Use: No Substance Use: No Allergies-Medications (Allergen,Severity, Reaction): Coded Allergies: aspartame (Verified Allergy, Severe, ANAPHYLAXIS, 01/03/18) atropine (Verified Allergy, Severe, HIVES, RASH, 01/03/18) codeine (Verified Allergy, Severe, HIVES, RASH, 01/03/18) guaifenesin (Verified Allergy, Severe, HIVES, 01/03/18) hydrochlorothiazide (Verified Allergy, Severe, 01/03/18) hyoscyamine (Verified Allergy, Severe, HIVES, RASH, 01/03/18) phenobarbital (Verified Allergy, Severe, HIVES, RASH, 01/03/18) scopolamine (Verified Allergy, Severe, HIVES, RASH, 01/03/18) telmisartan (Verified Allergy, Severe, RASH, SWELLING AND PAIN TO EXTREMITIES, 01/03/18) tramadol (Verified Allergy, Severe, 01/03/18) *MDRO Multi-Drug Resistant Organism (Verified Adverse Reaction, Unknown, MRSA, 01/03/18) MRSA (leg wound, synovial fluid, blood) - 01/16/2008 Reported Meds & Prescriptions Reported Meds & Active Scripts Active Reported Glucosamine Sulfate 1,000 Mg Tab 1,000 Mg PO DAILY Coq-10 (Coenzyme Q10 (Ubidecarenone)) 100 Mg Cap 100 Mg PO DAILY [place]-3 Fish Oil/Vitamin (Fish Oil-Cholecalciferol) 1,000-1,000 Mg Cap 1 Cap PO DAILY Fiber Therapy (Methylcellulose) 500 Mg Tab 1 Tab PO DAILY PRN Novolin 70-30 Inj (Insulin Human Isoph/Insulin Regular) 1,000 Unit/10 Ml Vial 1 Units SQ Pravastatin 40 Mg Tab 40 Mg PO DAILY Aspirin 81 (Aspirin) 81 Mg Tabdr 81 Mg PO DAILY Multivitamin Women 50+ (Multiple Vitamins W/ Minerals) 1 Tab Tab 1 Tab PO DAILY Magnesium 250 Mg Tab 250 Mg PO DAILY Potassium 99 Mg Tab 1 Tab PO DAILY Omeprazole 20 Mg Tab 20 Mg PO DAILY Pioglitazone (Pioglitazone HCl) 30 Mg Tab 30 Mg PO DAILY Metformin ER (Metformin HCl) 1,000 Mg Jose 1,000 Mg PO BID With evening meal Lisinopril 40 Mg Tab 40 Mg PO DAILY Metoprolol Tartrate 50 Mg Tab 50 Mg PO BID Review of Systems Except as stated in HPI: all other systems reviewed are Neg Physical Exam Narrative GENERAL: SKIN: Warm and dry. HEAD: Atraumatic. Normocephalic. EYES: Pupils equal and round. No scleral icterus. No injection or drainage. ENT: No nasal bleeding or discharge. Mucous membranes pink and moist. Tongue is midline. No uvula deviation. NECK: Trachea midline. No JVD. CARDIOVASCULAR: Regular rate and rhythm. No murmurs, S3, S4. RESPIRATORY: No accessory muscle use. Clear to auscultation. Breath sounds equal bilaterally. GASTROINTESTINAL: Abdomen soft, tender to palpation of the left lower quadrant, nondistended. Hepatic and splenic margins not palpable. MUSCULOSKELETAL: Extremities without clubbing, cyanosis, or edema. No obvious deformities. Full range of motion of the upper and lower extremities bilaterally. 2+ pulses bilaterally. NEUROLOGICAL: Awake and alert. No obvious cranial nerve deficits. Motor grossly within normal limits. Five out of 5 muscle strength in the arms and legs. Normal speech. PSYCHIATRIC: Appropriate mood and affect; insight and judgment normal. Data Data Last Documented VS Vital Signs Date Time Temp Pulse Resp B/P (MAP) Pulse Ox O2 Delivery O2 Flow Rate FiO2 01/03/18 19:06 98.2 96 20 231/98 (142) 97 Orders Orders Complete Blood Count With Diff (01/03/18 19:08) Comprehensive Metabolic Panel (01/03/18 19:08) Lipase (01/03/18 19:08) Urinalysis - C+S If Indicated (01/03/18 19:08) Urine Culture (01/03/18 19:35) Iv Access Insert/Monitor (01/03/18 21:03) Morphine Inj (Morphine Inj) (01/03/18 21:15) Ondansetron Inj (Zofran Inj) (01/03/18 21:15) Sodium Chlor 0.9% 1000 Ml Inj (Ns 1000 M (01/03/18 21:03) Ct Abd/Pel W Iv Contrast(Rout) (01/03/18 ) Labs Laboratory Tests Test 01/03/18 19:35 White Blood Count 6.5 TH/MM3 Red Blood Count 4.54 MIL/MM3 Hemoglobin 12.9 GM/DL Hematocrit 38.5 % Mean Corpuscular Volume 84.7 FL Mean Corpuscular Hemoglobin 28.4 PG Mean Corpuscular Hemoglobin Concent 33.5 % Red Cell Distribution Width 13.7 % Platelet Count 223 TH/MM3 Mean Platelet Volume 8.5 FL Neutrophils (%) (Auto) 50.1 % Lymphocytes (%) (Auto) 35.8 % Monocytes (%) (Auto) 9.8 % Eosinophils (%) (Auto) 3.5 % Basophils (%) (Auto) 0.8 % Neutrophils # (Auto) 3.3 TH/MM3 Lymphocytes # (Auto) 2.3 TH/MM3 Monocytes # (Auto) 0.6 TH/MM3 Eosinophils # (Auto) 0.2 TH/MM3 Basophils # (Auto) 0.0 TH/MM3 CBC Comment DIFF FINAL Differential Comment Urine Color YELLOW Urine Turbidity HAZY Urine pH 5.0 Urine Specific [place] 1.018 Urine Protein NEG mg/dL Urine Glucose (UA) NEG mg/dL Urine Ketones NEG mg/dL Urine Occult Blood NEG Urine Nitrite NEG Urine Bilirubin NEG Urine Urobilinogen LESS THAN 2.0 MG/DL Urine Leukocyte Esterase LARGE Urine WBC 54 /hpf Urine Squamous Epithelial Cells 3 /hpf Urine Transitional Epithelial Cells <1 /hpf Microscopic Urinalysis Comment CULTURE INDICATED Blood Urea Nitrogen 19 MG/DL Creatinine 1.00 MG/DL Random Glucose 161 MG/DL Total Protein 8.0 GM/DL Albumin 3.8 GM/DL Calcium Level 8.8 MG/DL Alkaline Phosphatase 133 U/L Aspartate Amino Transf (AST/SGOT) 22 U/L Alanine Aminotransferase (ALT/SGPT) 33 U/L Total Bilirubin 0.4 MG/DL Sodium Level 139 MEQ/L Potassium Level 4.0 MEQ/L Chloride Level 108 MEQ/L Carbon Dioxide Level 23.1 MEQ/L Anion Gap 8 MEQ/L Estimat Glomerular Filtration Rate 55 ML/MIN Lipase 252 U/L [facility] Medical Decision Making Medical Screen Exam Complete: Yes Emergency Medical Condition: Yes Medical Record Reviewed: Yes Interpretation(s) CBC & BMP Diagram 01/03/18 19:35 Total Protein 8.0, Albumin 3.8, Calcium Level 8.8, Alkaline Phosphatase 133 H, Aspartate Amino Transf (AST/SGOT) 22, Alanine Aminotransferase (ALT/SGPT) 33, Total Bilirubin 0.4 UA shows WBCs and leukerase esterase Differential Diagnosis Diverticulitis versus UTI versus pyelonephritis versus gastroenteritis versus kidney stone Narrative Course 67-year-old female that presents to the ED for evaluation of lower abdominal pain. Patient was properly examined and was found to have signs and symptoms of unclear etiology but likely related to diverticulitis vs urinary infection. Labs and imaging order. Last further intervention were essentially unremarkable other than for some leukocyte esterase in the urine. Patient is very tender on exam. CT was ordered. Case will be signed out to my attending pending disposition and plan. Vinay Baron Jan 03, 2018 22:27
--- NOTE | 2018-01-03 23:03 | RADRPT ---
EXAM DATE/TIME: 01/03/2018 22:46 [facility] COMPARISON: CT ABDOMEN & PELVIS W CONTRAST, September 06, 2016, 6:19. INDICATIONS : Left lower quadrant pain. IV CONTRAST: 100 cc Omnipaque 350 (iohexol) IV ORAL CONTRAST: No oral contrast ingested. RADIATION DOSE: 25.17 CTDIvol (mGy) MEDICAL HISTORY : Hypertension. Diverticulitis. SURGICAL HISTORY : Appendectomy. Cholecystectomy.Tubal ligation. ENCOUNTER: Initial ACUITY: 1 day PAIN SCALE: 5/10 LOCATION: Left lower quadrant abdomen TECHNIQUE: Volumetric scanning of the abdomen and pelvis was performed. Using automated exposure control and ad justment of the mA and/or kV according to patient size, radiation dose was kept as low as reasonably achievable to obtain optimal diagnostic quality images. DICOM format image data is available electro nically for review and comparison. FINDINGS: There are scattered diverticula of the sigmoid colon but I don't see any acute inflammatory changes. No bowel obstruction. No free air or free fluid. Fatty liver again noted. Cholecystectomy changes. Spleen and pancreas are normal. Bilateral adrenal a denomas are stable. No acute abnormality of either kidney. Left kidney again noted to be slightly sma ll relative to the right. Visualized lung bases are clear. No acute bony abnormality demonstrated. Degenerative changes are see n in the spine and sacroiliac joints. CONCLUSION: No acute abnormality demonstrated. Carmelo Palacios MD on January 03, 2018 at 22:59 Board Certified Radiologist. This report was verified electronically.
[2018-01-03] MEDS ORDERED: cefTRIAXone INJ 1,000 MG in SODIUM CHLORIDE 0.9% INJ 100 ML IV ONE (23:15)
[2018-01-03] MEDS ORDERED: CEPH-460 PO (23:37)
--- NOTE | 2018-01-03 23:37 | PD ---
Physical Exam Date Seen by Provider: Jan 03, 2018 Narrative This patient presented with left lower quadrant abdominal pain. The pain radiates to the right lower quadrant. She has a history of diverticulitis. Her abdomen is soft with some left-sided tenderness. No guarding or rebound. Please see Gilbert Baron, PACs H&P for full details. Data Data Last Documented VS Vital Signs Date Time Temp Pulse Resp B/P (MAP) Pulse Ox O2 Delivery O2 Flow Rate FiO2 01/03/18 19:06 98.2 96 20 231/98 (142) 97 Orders Orders Complete Blood Count With Diff (01/03/18 19:08) Comprehensive Metabolic Panel (01/03/18 19:08) Lipase (01/03/18 19:08) Urinalysis - C+S If Indicated (01/03/18 19:08) Urine Culture (01/03/18 19:35) Iv Access Insert/Monitor (01/03/18 21:03) Morphine Inj (Morphine Inj) (01/03/18 21:15) Ondansetron Inj (Zofran Inj) (01/03/18 21:15) Sodium Chlor 0.9% 1000 Ml Inj (Ns 1000 M (01/03/18 21:03) Ct Abd/Pel W Iv Contrast(Rout) (01/03/18 ) Iohexol 350 Inj (Omnipaque 350 Inj) (01/03/18 19:04) Ceftriaxone Inj (Rocephin Inj) (01/03/18 23:15) Labs Laboratory Tests Test 01/03/18 19:35 White Blood Count 6.5 TH/MM3 Red Blood Count 4.54 MIL/MM3 Hemoglobin 12.9 GM/DL Hematocrit 38.5 % Mean Corpuscular Volume 84.7 FL Mean Corpuscular Hemoglobin 28.4 PG Mean Corpuscular Hemoglobin Concent 33.5 % Red Cell Distribution Width 13.7 % Platelet Count 223 TH/MM3 Mean Platelet Volume 8.5 FL Neutrophils (%) (Auto) 50.1 % Lymphocytes (%) (Auto) 35.8 % Monocytes (%) (Auto) 9.8 % Eosinophils (%) (Auto) 3.5 % Basophils (%) (Auto) 0.8 % Neutrophils # (Auto) 3.3 TH/MM3 Lymphocytes # (Auto) 2.3 TH/MM3 Monocytes # (Auto) 0.6 TH/MM3 Eosinophils # (Auto) 0.2 TH/MM3 Basophils # (Auto) 0.0 TH/MM3 CBC Comment DIFF FINAL Differential Comment Urine Color YELLOW Urine Turbidity HAZY Urine pH 5.0 Urine Specific [place] 1.018 Urine Protein NEG mg/dL Urine Glucose (UA) NEG mg/dL Urine Ketones NEG mg/dL Urine Occult Blood NEG Urine Nitrite NEG Urine Bilirubin NEG Urine Urobilinogen LESS THAN 2.0 MG/DL Urine Leukocyte Esterase LARGE Urine WBC 54 /hpf Urine Squamous Epithelial Cells 3 /hpf Urine Transitional Epithelial Cells <1 /hpf Microscopic Urinalysis Comment CULTURE INDICATED Blood Urea Nitrogen 19 MG/DL Creatinine 1.00 MG/DL Random Glucose 161 MG/DL Total Protein 8.0 GM/DL Albumin 3.8 GM/DL Calcium Level 8.8 MG/DL Alkaline Phosphatase 133 U/L Aspartate Amino Transf (AST/SGOT) 22 U/L Alanine Aminotransferase (ALT/SGPT) 33 U/L Total Bilirubin 0.4 MG/DL Sodium Level 139 MEQ/L Potassium Level 4.0 MEQ/L Chloride Level 108 MEQ/L Carbon Dioxide Level 23.1 MEQ/L Anion Gap 8 MEQ/L Estimat Glomerular Filtration Rate 55 ML/MIN Lipase 252 U/L MDM Supervised Visit with ZOIE: Yes Narrative Course I, Dr. Toscano, have reviewed the advance practice practitioner's documentation and am in agreement, met with the patient face to face, made the diagnosis, and the medical decision making was done by me. *My assessment and Findings: CBC & BMP Diagram 01/03/18 19:35 Total Protein 8.0, Albumin 3.8, Calcium Level 8.8, Alkaline Phosphatase 133 H, Aspartate Amino Transf (AST/SGOT) 22, Alanine Aminotransferase (ALT/SGPT) 33, Total Bilirubin 0.4 Last Impressions Abdomen/Pelvis CT 01/03/18 0000 Signed Impressions: Service Date/Time: Wednesday, January 03, 2018 22:46 - CONCLUSION: No acute abnormality demonstrated. Carmelo Palacios MD UA>>large LE, > 54 WBCs She has been given Rocephin. She will be discharged home on Keflex. Diagnosis Primary Impression: Abdominal pain Qualified Codes: R10.32 - Left lower quadrant pain Additional Impression: UTI (urinary tract infection) Qualified Codes: N39.0 - Urinary tract infection, site not specified Patient Instructions: General Instructions, Urinary Tract Infection in Women ( [place]) Med/Other Pt SpecificInfo: Prescription(s) given Scripts Cephalexin (Keflex) 500 Mg Capsule 500 MG PO TID for Infection for 7 Days, CAP 0 Refills Prov: Codi Toscano MD 01/03/18 Disposition: 01 DISCHARGE HOME Condition: Stable Codi Toscano MD Jan 03, 2018 23:37
== END 2018-01-04 01:19 | disposition home or self-care (01) ==
LOC: NEPE 19:03
DX: R10.32 Left lower quadrant pain (principal); N39.0 Urinary tract infection, site not specified; B96.20 Unspecified Escherichia coli [E. coli] as the cause of diseases classified elsewhere; I10 Essential (primary) hypertension; E78.00 Pure hypercholesterolemia, unspecified; E11.9 Type 2 diabetes mellitus without complications; B15.9 Hepatitis A without hepatic coma; Z88.8 Allergy status to other drugs, medicaments and biological substances; Z79.84 Long term (current) use of oral hypoglycemic drugs; Z79.899 Other long term (current) drug therapy
CPT/HCPCS: 74177; 80053; 81001; 83690; 85025; 87077; 87086; 87186; 96361; 96365; 96375; 99284; J0696; J2270; J2405; J7030; Q9967